=== PATIENT | male | born 1970 | race African-American/Black ===

== ENCOUNTER 2024-12-04 08:45 | Inpatient (IN) | payer MEDICAID ==
[~2024-12-04] VITALS: Ht 175.3 cm; Wt 161.0 kg
[2024-12-04] VITALS (17 sets, daily range): BP systolic 115–151; BP diastolic 62–89; PULSE 56–65; RESP 15–22; TEMP 36.5–36.7; O2SAT 94–100
[~2024-12-04 08:45] MED LIST: ASPIRIN; ATENOLOL; NIFEDIPINE
[2024-12-04 09:06] LABS: BASOPHILS % 0.5 % (0.0-2.0); EOSINOPHILS % 0.9 % (0.0-5.0); HEMATOCRIT. 46.2 % (42.0-52.0); HEMOGLOBIN. 15.4 g/dL (14.0-18.0); LYMPHOCYTES % 50.4 % (20.0-50.0); MEAN CORPUSCULAR HEMOGLOBIN 30.4 pg (28.0-32.0); MEAN CORPUSCULAR HGB CONC 33.3 g/dL (31.0-37.0); MEAN CORPUSCULAR VOLUME 91.1 fL (80.0-94.0); MONOCYTES % 7.3 % (2.0-8.0); NEUTROPHILS % 40.9 % (40.0-76.0); PLATELET 284 x1000/uL (130-400); RED BLOOD CELL COUNT 5.07 mill/uL (4.7-6.1); RED CELL DISTRIBUTION WIDTH 14.7 % (11.6-14.6); WHITE BLOOD COUNT 12.7 x1000/uL (4.5-11.0)
[2024-12-04] MEDS: SODIUM CHLORIDE 0.9% 1,000 ML IV ONE (09:06)
[2024-12-04] MEDS: DILTIAZEM HCL 5MG/ML 5ML VIAL IV ONE ×2 (09:07→11:12)
[2024-12-04 09:09] LABS: CHLORIDE 96 mEq/L (98-107); SODIUM 137 mEq/L (136-145)
[2024-12-04 09:10] LABS: CALCIUM 9.9 mg/dL (8.7-10.4); CARBON DIOXIDE 27 mEq/L (21-32)
[2024-12-04 09:15] LABS: CREATININE 1.3 mg/dL (0.6-1.3); ETHANOL BLOOD < 10 mg/dL (<10); GLUCOSE 100 mg/dL (70-105); UREA NITROGEN BLOOD 17 mg/dL (9-23)
[2024-12-04 09:16] LABS: TROPONIN I HIGH SENSITIVITY 9 ng/L (3.0-53)
[2024-12-04 09:21] LABS: POTASSIUM 2.5 mEq/L (3.5-5.1)
[2024-12-04] MEDS: METOPROLOL TARTRATE 5MG/5ML VIAL IV ONE (09:45)
[2024-12-04] MEDS: POTASSIUM CHLORIDE 20MEQ TABLET SR PO ONE (09:50)
[2024-12-04 09:52] LABS: PARTIAL THROMBOPLASTIN TIME 31.5 sec (23.4-31.0); PROTHROMBIN TIME 10.5 sec (9.6-11.0)
[2024-12-04] MEDS: KCL 10MEQ/50ML PREMIX 50 ML IV SCH (09:57)
[2024-12-04 10:03] LABS: ALANINE AMINOTRANSFERASE 19 IU/L (10-49); ALBUMIN 4.5 g/dL (3.2-4.8); ASPARTATE AMINOTRANSFERASE 20 IU/L (<34); BILIRUBIN DIRECT 0.1 mg/dL (<=3.0); PHOSPHORUS 2.8 mg/dL (2.5-4.9)
[2024-12-04 10:04] LABS: BILIRUBIN TOTAL 0.4 mg/dL (0.1-1.0); PROTEIN TOTAL 7.4 g/dL (6.0-8.3)
[2024-12-04 10:37] LABS: *AMPHETAMINES SCREEN URINE NEGATIVE (NEGATIVE); *BARBITURATES SCREEN URINE NEGATIVE (NEGATIVE); *BENZODIAZEPINES SCREEN URINE NEGATIVE (NEGATIVE); *COCAINE SCREEN URINE NEGATIVE (NEGATIVE); CANNABINOID URINE SCREEN NEGATIVE (NEGATIVE); ECSTASY MDMA SCREEN URINE NEGATIVE (NEGATIVE); METHADONE URINE SCREEN NEGATIVE (NEGATIVE); OPIATES URINE SCREEN NEGATIVE (NEGATIVE); PHENCYCLIDINE URINE SCREEN NEGATIVE (NEGATIVE)
[2024-12-04] MEDS: DILTIAZEM HCL 125 MG in DEXT 5% WATER 100 ML IV ONE ×2 (11:00→12:01)
[2024-12-04 11:49] LABS: TROPONIN I HIGH SENSITIVITY 16 ng/L (3.0-53)
[2024-12-04] MEDS: DILTIAZEM HCL 30MG TABLET PO SCH (13:47)
[2024-12-04] MEDS: ENOXAPARIN 120MG/0.8ML SYR SUBCUT SCH (13:48)
[2024-12-05] VITALS: BP 135/80; PULSE 60; RESP 18; TEMP 36.6; O2SAT 97
[2024-12-05 04:00] VITALS: BP 137/78; PULSE 59; RESP 18; TEMP 36.7; O2SAT 97
[2024-12-05 08:00] VITALS: BP 125/78; PULSE 51; RESP 18; TEMP 36.6; O2SAT 97
[2024-12-05 12:00] VITALS: BP 131/75; PULSE 55; RESP 18; TEMP 36.5; O2SAT 98
[2024-12-05] MEDS: POTASSIUM CHLORIDE 20MEQ/PACKET PO SCH (13:20)
[2024-12-05 15:22] LABS: CHLORIDE 100 mEq/L (98-107); POTASSIUM 3.1 mEq/L (3.5-5.1); SODIUM 139 mEq/L (136-145)
[2024-12-05 15:23] LABS: CARBON DIOXIDE 31 mEq/L (21-32)
[2024-12-05 15:24] LABS: CALCIUM 9.4 mg/dL (8.7-10.4)
[2024-12-05 15:28] LABS: GLUCOSE 92 mg/dL (70-105); UREA NITROGEN BLOOD 8 mg/dL (9-23)
[2024-12-05 16:00] VITALS: BP 126/83; PULSE 60; RESP 18; TEMP 36.7; O2SAT 98
[2024-12-05] MEDS: DIGOXIN 125MCG TABLET PO SCH (17:09)
[2024-12-05] MEDS: APIXABAN 5 MG TABLET PO SCH (17:11)
[2024-12-05] MEDS ORDERED: DIGO125T80 MT (19:35)
== END 2024-12-05 20:50 | disposition home or self-care (01) | DRG 201 ==
LOC: ER 09:04 → EDBEDREQTM 11:46 → EDBEDREQSVC 11:46 → EDBEDREQ 11:46 → MICUNO 12:53 → 8WST 23:21
PROVIDERS: ADMIT Internal Medicine; ATTEND Internal Medicine
DX: I48.19 Other persistent atrial fibrillation (principal); D68.59 Other primary thrombophilia; I50.22 Chronic systolic (congestive) heart failure; I11.0 Hypertensive heart disease with heart failure; I48.92 Unspecified atrial flutter; E87.6 Hypokalemia; R07.89 Other chest pain; M19.90 Unspecified osteoarthritis, unspecified site; I25.10 Atherosclerotic heart disease of native coronary artery without angina pectoris; Z79.899 Other long term (current) drug therapy
CPT/HCPCS: 36415; 71045; 80048; 80076; 80305; 80320; 83735; 83880; 84100; 84484; 85025; 93005; 93306; 99291; J1650; J3480; J3490; J7030; J7060; G0480